=== PATIENT | female | born 1975 | race Caucasian/White ===

== ENCOUNTER 2022-10-15 19:44 | Emergency (ER) | payer BC, MEDICAID ==
[~2022-10-15] VITALS: Ht 165.1 cm; Wt 113.0 kg
[2022-10-15] MEDS ORDERED: LIDOCAINE 5% PATCH TOP ONE (20:15)
[2022-10-15] MEDS ORDERED: IBUP-2029 MT (21:03)
[2022-10-15 22:14] VITALS: BP 146/84
== END 2022-10-15 22:19 | disposition home or self-care (01) ==
LOC: ER 20:16
DX: S43.402A Unspecified sprain of left shoulder joint, initial encounter (principal); R07.89 Other chest pain; W18.39XA Other fall on same level, initial encounter; Y93.89 Activity, other specified; Y92.89 Other specified places as the place of occurrence of the external cause; Y99.8 Other external cause status
CPT/HCPCS: 71250; 73030; 93005; 99284

== ENCOUNTER 2024-01-30 21:52 | Emergency (ER) | payer BC, MEDICAID ==
[~2024-01-30] VITALS: Ht 162.6 cm; Wt 113.0 kg
[~2024-01-30 21:52] MED LIST: IBUP-2029 MT
[2024-01-30 22:02] VITALS: TEMP 98.4; O2SAT 99
[2024-01-30] MEDS: ONDANSETRON HCL 4MG/2ML INJ IV ONE (22:51)
[2024-01-30] MEDS: KETOROLAC 15MG/ML VIAL IV ONE (22:51)
[2024-01-30] MEDS: SODIUM CHLORIDE 0.9% 1,000 ML IV ONE (22:57)
[2024-01-30 23:05] LABS: CLARITY URINE CLOUDY (CLEAR); COLOR URINE YELLOW (YELLOW); GLUCOSE URINE 3+ (NEGATIVE); KETONES URINE NEGATIVE (NEGATIVE); LEUKOCYTE ESTERASE URINE 1+ (NEGATIVE); NITRITE URINE POSITIVE (NEGATIVE); OCCULT BLOOD URINE NEGATIVE (NEGATIVE); PROTEIN URINE NEGATIVE (NEGATIVE); SPECIFIC GRAVITY URINE 1.021 (1.005-1.030); UROBILINOGEN URINE 0.2 E.U./dL (0.2-1.0)
[2024-01-30 23:18] LABS: BACTERIA URINE 4+; RBC URINE 0-2 /hpf (0-2); SQUAMOUS EPITHELIAL CELL URINE 1+ /lpf (RARE/1+); WBC URINE 15-25 /hpf (0-2)
[2024-01-30 23:26] LABS: BASOPHILS % 0.3 % (0.0-2.0); EOSINOPHILS % 0.4 % (0.0-5.0); HEMATOCRIT. 35.7 % (36.0-48.0); HEMOGLOBIN. 11.4 g/dL (12.0-16.0); LYMPHOCYTES % 10.2 % (20.0-50.0); MEAN CORPUSCULAR HEMOGLOBIN 25.6 pg (28.0-32.0); MEAN CORPUSCULAR VOLUME 80.2 fL (81.0-99.0); MEAN PLATELET VOLUME 9.6 fl (7.4-10.4); MONOCYTES % 5.2 % (2.0-8.0); NEUTROPHILS % 83.9 % (40.0-76.0); PLATELET 217 x1000/uL (130-400); RED BLOOD CELL COUNT 4.45 mill/uL (4.2-5.4); WHITE BLOOD COUNT 12.7 x1000/uL (4.5-11.0)
[2024-01-30 23:33] LABS: CHLORIDE 98 mEq/L (98-107); POTASSIUM 3.8 mEq/L (3.5-5.1); SODIUM 131 mEq/L (136-145)
[2024-01-30 23:34] LABS: CALCIUM 8.8 mg/dL (8.7-10.4); CARBON DIOXIDE 26 mEq/L (21-32)
[2024-01-30 23:39] LABS: CREATININE 1.2 mg/dL (0.6-1.0); UREA NITROGEN BLOOD 15 mg/dL (9-23)
[2024-01-30 23:40] LABS: HCG SCREEN NEGATIVE
[2024-01-30 23:41] LABS: ALANINE AMINOTRANSFERASE 29 IU/L (10-49); ALBUMIN 3.8 g/dL (3.2-4.8); ASPARTATE AMINOTRANSFERASE 34 IU/L (<34); BILIRUBIN DIRECT 0.1 mg/dL (<=3.0); BILIRUBIN TOTAL 0.4 mg/dL (0.1-1.0); PROTEIN TOTAL 7.4 g/dL (6.0-8.3)
[2024-01-31 00:13] LABS: GLUCOSE 433 mg/dL (70-105)
[2024-01-31] MEDS: ACETAMINOPHEN 1000MG/100ML 100 ML IV NR (01:15)
[2024-01-31] MEDS: INSULIN REGULAR (HUMULIN R) 1000UNITS/10ML VIAL SUBCUT NR (01:28)
[2024-01-31] MEDS ORDERED: SULF1TAB48 MT (01:48)
[2024-01-31] MEDS: SULFAMETHOXAZOLE/TRIMETHOPRIM 800/160MG TABLET PO NR (02:09)
[2024-01-31 02:10] VITALS: BP 128/73; PULSE 96; RESP 12
== END 2024-01-31 02:22 | disposition home or self-care (01) ==
LOC: ER 21:52
DX: N39.0 Urinary tract infection, site not specified (principal); E11.65 Type 2 diabetes mellitus with hyperglycemia; I10 Essential (primary) hypertension; Z00.00 Encounter for general adult medical examination without abnormal findings; Z88.0 Allergy status to penicillin; Z90.49 Acquired absence of other specified parts of digestive tract; Z90.710 Acquired absence of both cervix and uterus
CPT/HCPCS: 99285; 76830; 76856; 96375; 96361; 80076; 80048; 81003; 82962 ×2; 84703; 85025; 87086; 36415; 93005; 74176; 96365; 96372; J1885; J2405; J7030; J1815; J0131

== ENCOUNTER 2025-03-27 18:35 | Emergency (ER) | payer BC, MEDICAID ==
[~2025-03-27] VITALS: Ht 165.1 cm; Wt 105.0 kg
[~2025-03-27 18:35] MED LIST changes: +SULF1TAB48 MT
[2025-03-27 18:36] VITALS: O2SAT 97
[2025-03-27 18:40] VITALS: BP 142/79; PULSE 98; RESP 16; TEMP 36.7; O2SAT 100
== END 2025-03-27 21:39 | disposition left against medical advice (07) ==
LOC: ER 18:35
DX: M25.511 Pain in right shoulder (principal); Z53.21 Procedure and treatment not carried out due to patient leaving prior to being seen by health care provider